=== PATIENT | female | born 1990 | race Hispanic/Latino ===

== ENCOUNTER 2016-08-21 06:14 | Emergency (ER) | payer OTHER ==
[2016-08-21 06:36] VITALS: BP 122/82; RESP 18; TEMP 97.7; O2SAT 100
--- NOTE | 2016-08-21 06:53 | ED PDOC ---
HPI: Female Pain Chief Complaint (Nursing): Female Genitourinary History Per: Patient History/Exam Limitations: no limitations Onset/Duration Of Symptoms: Days Current Symptoms Are (Timing): Still Present Quality Of Discomfort: Dull, Burning Additional History Per: Patient Additional Complaint(s): pt. w/ hx of uti p/w burning upon urination, discomfort, suprapubic pain. no fevers. occaionsal back pain. no n/v/d. no cp/sob/palpitations. Past Medical History Reviewed: Historical Data, Nursing Documentation, Vital Signs Vital Signs: Last Vital Signs Temp 97.7 F 08/21/16 06:31 Pulse 122 H 08/21/16 06:31 Resp 18 08/21/16 06:31 BP 122/82 08/21/16 06:31 Pulse Ox 100 08/21/16 06:31 - Medical History PMH: Anxiety, Bipolar Disorder Denies: Diabetes, Hepatitis, HIV, HTN, Seizures, Sexually Transmitted Disease - Family History Family History: States: Unknown Family Hx - Home Medications Home Medications: Ambulatory Orders Medication Instructions Recorded Cephalexin [cephalexin] 500 mg PO BID 7 Days 08/21/16 Dextroamphetamine/Amphetamine 20 mg PO BID 08/21/16 [Adderall 20 mg Tablet] LORazepam [Ativan] 2 mg PO PRN PRN 08/21/16 - Allergies Allergies/Adverse Reactions: Allergies Allergy/AdvReac Type Severity Reaction Status Date / Time Sulfa (Sulfonamide Allergy ANAPHYLAXIS Verified 08/21/16 06:34 Antibiotics) Review of Systems ROS Statement: Except As Marked, All Systems Reviewed And Found Negative Genitourinary Female: Positive for: Dysuria, Frequency, Hematuria Physical Exam - Reviewed Nursing Documentation Reviewed: Yes Vital Signs Reviewed: Yes - Physical Exam Appears: Positive for: Well, Non-toxic, No Acute Distress Head Exam: Positive for: ATRAUMATIC, NORMAL INSPECTION, NORMOCEPHALIC Skin: Positive for: Normal Color, Warm, DRY Eye Exam: Positive for: EOMI, Normal appearance, PERRL ENT: Positive for: Normal ENT Inspection Neck: Positive for: Normal, Painless ROM Cardiovascular/Chest: Positive for: Regular Rate, Rhythm Respiratory: Positive for: CNT, Normal Breath Sounds Gastrointestinal/Abdominal: Positive for: Normal Exam, Bowel Sounds, Soft Back: Positive for: Normal Inspection Extremity: Positive for: Normal ROM Neurologic/Psych: Positive for: Alert, Oriented - ECG O2 Sat by Pulse Oximetry: 100 Pulse Ox Interpretation: Normal Medical Decision Making Medical Decision Making: pt. w/ uti- HR decreased to below 100. will d/c home w/ keflex. Disposition - Clinical Impression Clinical Impression: Urinary tract infection - Patient ED Disposition Is Patient to be Admitted: No - Disposition Referrals: In House [facility] [Outside] Disposition: Routine/Home Disposition Time: 06:53 Condition: STABLE Prescriptions: Cephalexin [cephalexin] 500 mg PO BID 7 Days Instructions: Urinary Tract Infection in Women (ED)
[2016-08-21 06:59] VITALS: PULSE 95
== END 2016-08-21 07:01 | disposition home or self-care (01) ==
LOC: H.ER 06:14
DX: N39.0 Urinary tract infection, site not specified (principal)

== ENCOUNTER 2016-08-27 02:59 | Emergency (ER) | payer OTHER ==
[2016-08-27 03:23] VITALS: BP 116/66; PULSE 86; RESP 16; TEMP 98.8; O2SAT 99
[2016-08-27] MEDS ORDERED: Sodium Chloride 0.9% 1,000 ML IV STA (03:42)
--- NOTE | 2016-08-27 03:45 | ED PDOC ---
HPI: Female Pain Time Seen by Provider: 08/27/16 03:03 Chief Complaint (Nursing): GI Problem Chief Complaint (Provider): dysuria History Per: Patient History/Exam Limitations: no limitations Onset/Duration Of Symptoms: Days (5) Current Symptoms Are (Timing): Still Present Quality Of Discomfort: Burning, "Pain" Additional History Per: Patient Additional Complaint(s): 25 y/o female presents with dysuria x 5 days. Patient on keflex for UTI diagnosed 08/21, but notes little improvement of symptoms. She now notes associated back pain since yesterday with hematuria. Denies fever, nausea/ vomiting, abdominal pain, changes in bowel movements, vaginal bleeding/ discharge. Patient states she has had kidney infection in past and feels these symptoms to be the start of one. Past Medical History Reviewed: Historical Data, Nursing Documentation, Vital Signs Vital Signs: Last Vital Signs Temp 98.8 F 08/27/16 03:19 Pulse 86 08/27/16 03:19 Resp 16 08/27/16 03:19 BP 116/66 08/27/16 03:19 Pulse Ox 99 08/27/16 03:19 - Medical History PMH: Anxiety, Bipolar Disorder Denies: Diabetes, Hepatitis, HIV, HTN, Seizures, Sexually Transmitted Disease - Surgical History Surgical History: Tonsillectomy - Family History Family History: States: Unknown Family Hx - Home Medications Home Medications: Ambulatory Orders Medication Instructions Recorded Cephalexin [cephalexin] 500 mg PO BID 7 Days 08/21/16 Dextroamphetamine/Amphetamine 20 mg PO BID 08/21/16 [Adderall 20 mg Tablet] LORazepam [Ativan] 2 mg PO PRN PRN 08/21/16 Levofloxacin [Levaquin] 750 mg PO DAILY #4 tablet 08/27/16 - Allergies Allergies/Adverse Reactions: Allergies Allergy/AdvReac Type Severity Reaction Status Date / Time Sulfa (Sulfonamide Allergy ANAPHYLAXIS Verified 08/21/16 06:34 Antibiotics) Review of Systems ROS Statement: Except As Marked, All Systems Reviewed And Found Negative Gastrointestinal: Positive for: Abdominal Pain Musculoskeletal: Positive for: Back Pain Physical Exam - Reviewed Nursing Documentation Reviewed: Yes Vital Signs Reviewed: Yes - Physical Exam Appears: Positive for: Well, Non-toxic, No Acute Distress Head Exam: Positive for: ATRAUMATIC, NORMAL INSPECTION, NORMOCEPHALIC Skin: Positive for: Normal Color Eye Exam: Positive for: Normal appearance ENT: Positive for: Normal ENT Inspection Cardiovascular/Chest: Positive for: Regular Rate, Rhythm Respiratory: Positive for: Normal Breath Sounds Gastrointestinal/Abdominal: Positive for: Tenderness (b/l flank) Back: Positive for: L CVA Tenderness, R CVA Tenderness Extremity: Positive for: Normal ROM Neurologic/Psych: Positive for: Alert, Oriented - Laboratory Results Result Diagrams: 08/27/16 04:10 08/27/16 04:03 Urine POC: Negative Urine dip results: Positive for: Leukocyte Esterase, Blood. Negative for: Nitrate, Ketones - ECG O2 Sat by Pulse Oximetry: 99 - Progress ED Course And Treament: labs, urine, IV fluids, IV toradol Patient educated on findings, discharged with rx Levaquin (dose given in ED) Advised follow up PMD 2-3 days. Return to ED for worsening/concerning symptoms. Disposition - Clinical Impression Clinical Impression: Pyelonephritis - Patient ED Disposition Is Patient to be Admitted: No Counseled Patient/Family Regarding: Studies Performed, Diagnosis, Need For Followup, Rx Given - Disposition Disposition: Routine/Home Disposition Time: 05:38 Condition: IMPROVED Additional Instructions: Follow up with primary doctor in 2-3 days. Take medication as directed. Drink plenty of fluids. Return to ED for worsening/concerning symptoms. Prescriptions: Levofloxacin [Levaquin] 750 mg PO DAILY #4 tablet Instructions: Acute Pyelonephritis (ED)
[2016-08-27 04:41] LABS: RBC URINE 426 /hpf (0-3); URINE BACTERIA MOD (<OCC); URINE BILIRUBIN NEGATIVE (NEGATIVE); URINE BLOOD LARGE (NEGATIVE); URINE COLOR AMBER (YELLOW); URINE GLUCOSE (UA) NEG (Normal); URINE KETONE NEGATIVE (NEGATIVE); URINE LEUKOCYTE ESTERASE MOD Leu/uL (Negative); URINE PROTEIN 100 mg/dL (NEGATIVE); URINE UROBILINOGEN 0.2-1.0 mg/dL (0.2-1.0); WBC URINE 23 /hpf (0-5)
[2016-08-27 04:42] LABS: BASO # 0.1 K/uL (0.0-0.2); BASO % 1.2 % (0.0-2.0); EOS # 0.1 K/uL (0.0-0.7); EOS % 1.8 % (0.0-4.0); HEMATOCRIT 39.5 % (34.0-47.0); LYMPH # 2.6 K/uL (1.0-4.3); LYMPH % 33.6 % (20.0-40.0); MEAN CELL VOLUME 88.5 fl (81.0-99.0); MEAN CORPUSCULAR HEMOGLOBIN 30.2 pg (27.0-31.0); MEAN CORPUSCULAR HGB CONC 34.1 g/dL (33.0-37.0); MEAN PLATELET VOLUME 8.2 fl (7.2-11.7); MONO # 0.9 K/uL (0.0-0.8); MONO % 11.7 % (0.0-10.0); NEUT % 51.7 % (50.0-75.0); RED CELL DISTRIBUTION WIDTH 13.1 % (11.5-14.5); WHITE BLOOD COUNT 7.8 K/uL (4.8-10.8)
[2016-08-27 04:55] LABS: ALB/GLOB RATIO 1.1 (1.0-2.1); ALKALINE PHOSPHATASE 62 U/L (38-126); ALT/SGPT 26 U/L (9-52); AST/SGOT 28 U/L (14-36); BILIRUBIN,TOTAL 0.5 mg/dl (0.2-1.3); BLOOD UREA NITROGEN 15 mg/dl (7-17); CALCIUM 9.3 mg/dL (8.4-10.2); CARBON DIOXIDE 24 mmol/L (22-30); CHLORIDE 107 mmol/L (98-107); GFR AFRICAN-AMERICAN > 60; GLUCOSE,RANDOM 91 mg/dL (65-105); POTASSIUM 4.1 MMOL/L (3.6-5.0); SODIUM 143 mmol/l (132-148); TOTAL PROTEIN 7.3 G/DL (6.3-8.2)
[2016-08-27] MEDS ORDERED: levoFLOXacin 750 mg in D5W 750 MG/150 ML BAG IVPB ONE (05:20)
[2016-08-27] MEDS ORDERED: levoFLOXacin 750 mg in D5W 750 MG/150 ML BAG IVPB STA (05:24)
== END 2016-08-27 07:08 | disposition home or self-care (01) ==
LOC: H.ER 02:59
DX: N10 Acute pyelonephritis (principal)

== ENCOUNTER 2016-09-02 22:41 | Emergency (ER) | payer OTHER ==
[2016-09-02 22:52] VITALS: RESP 16
[2016-09-02] MEDS ORDERED: Sodium Chloride 0.9% 1,000 ML IV STA (23:33)
--- NOTE | 2016-09-02 23:45 | ED PDOC ---
HPI: Female Pain Time Seen by Provider: 09/02/16 23:12 Chief Complaint (Nursing): Female Genitourinary Chief Complaint (Provider): dysuria History Per: Patient History/Exam Limitations: no limitations Onset/Duration Of Symptoms: Days (1) Current Symptoms Are (Timing): Still Present Quality Of Discomfort: Burning, "Pain" Associated Symptoms: Chills, Back Pain, Urinary Symptoms. denies: Nausea, Vomiting Additional History Per: Patient Additional Complaint(s): 25 y/o female presents to ED for dysuria x 1 day. Associated increased urine frequency, urgency, mild back pain. Patient seen in ED twice last week for same , finished Levaquin yesterday and had no symptoms during course of treatment. Denies fever, nausea/vomiting, chest pain, shortness of breath, palpitations, abdominal pain, changes in bowel movements, vaginal bleeding/discharge. Patient sexually active, one partner, does not use protection; states low suspicion for STD. Past Medical History Reviewed: Historical Data, Nursing Documentation, Vital Signs Vital Signs: Last Vital Signs Temp 98.1 F 09/02/16 22:50 Pulse 89 09/02/16 22:50 Resp 16 09/02/16 22:50 BP 129/87 09/02/16 22:50 Pulse Ox 99 09/02/16 22:50 - Medical History PMH: Anxiety, Bipolar Disorder Denies: Diabetes, Hepatitis, HIV, HTN, Seizures, Sexually Transmitted Disease - Surgical History Surgical History: Tonsillectomy - Family History Family History: States: Unknown Family Hx - Home Medications Home Medications: Ambulatory Orders Medication Instructions Recorded Cephalexin [cephalexin] 500 mg PO BID 7 Days 08/21/16 Dextroamphetamine/Amphetamine 20 mg PO BID 08/21/16 [Adderall 20 mg Tablet] LORazepam [Ativan] 2 mg PO PRN PRN 08/21/16 Levofloxacin [Levaquin] 750 mg PO DAILY #4 tablet 08/27/16 Ibuprofen [Motrin Tab] 1 tab PO Q6 PRN #15 tab 09/03/16 Nitrofurantoin Macrocrystals 100 mg PO BID #13 cap 09/03/16 [Macrobid] Phenazopyridine HCl [Pyridium] 200 mg PO TID PRN #5 tablet 09/03/16 - Allergies Allergies/Adverse Reactions: Allergies Allergy/AdvReac Type Severity Reaction Status Date / Time Sulfa (Sulfonamide Allergy ANAPHYLAXIS Verified 08/21/16 06:34 Antibiotics) Review of Systems ROS Statement: Except As Marked, All Systems Reviewed And Found Negative Genitourinary Female: Positive for: Dysuria, Frequency, Pelvic Pain Musculoskeletal: Positive for: Back Pain Physical Exam - Reviewed Nursing Documentation Reviewed: Yes Vital Signs Reviewed: Yes - Physical Exam Appears: Positive for: Well, Non-toxic, No Acute Distress Head Exam: Positive for: ATRAUMATIC, NORMAL INSPECTION, NORMOCEPHALIC Skin: Positive for: Normal Color Eye Exam: Positive for: Normal appearance ENT: Positive for: Normal ENT Inspection Cardiovascular/Chest: Positive for: Regular Rate, Rhythm Respiratory: Positive for: Normal Breath Sounds Gastrointestinal/Abdominal: Positive for: Bowel Sounds, Soft, Tenderness ( suprapubic) Pelvic Exam: Positive for: External Exam Normal, Speculum Exam Normal, No Cerv. Motion Tender, Other (exam chaperoned by Radha Becerra RN). Negative for: Active Bleeding, Blood, Cervicitis, Discharge Back: Positive for: Normal Inspection Extremity: Positive for: Normal ROM Neurologic/Psych: Positive for: Alert, Oriented - Laboratory Results Result Diagrams: 09/02/16 23:46 09/02/16 23:46 Urine POC: Negative Urine dip results: Positive for: Leukocyte Esterase, Blood - ECG O2 Sat by Pulse Oximetry: 99 - Progress ED Course And Treament: labs, urine, CT abd/pelvis, genital cultures EXAM: CT Abdomen and Pelvis With Intravenous Contrast CLINICAL HISTORY: 25 years old, female; Pain; Other: Back; Additional info: Back pain, dysuria TECHNIQUE: Axial computed tomography images of the abdomen and pelvis with intravenous contrast. This CT exam was performed using one or more of the following dose reduction techniques : automated exposure control, adjustment of the mA and/or kV according to patient size, and/ or use of iterative reconstruction technique. Coronal and sagittal reformatted images were created and reviewed. CONTRAST: 90 mL of [id number] administered intravenously. EXAM DATE/TIME: 09/02/2016 11:33 PM COMPARISON: PELVIS/TRANSVAG US 07/11/2015 11:10:00 PM FINDINGS: Lower thorax: Heart size is normal. Lung bases are clear ABDOMEN: Liver: unremarkable Gallbladder and bile ducts: Gallbladder is collapsed. Common bile duct is unremarkable. Pancreas: unremarkable Spleen: Spleen is unremarkable. There is an accessory spleen in the left upper quadrant. Adrenals: unremarkable Kidneys and ureters: Kidneys and ureters are unremarkable. Stomach and bowel: Stomach is distended with ingested material and air. Rotation is normal. The small bowel is mildly distended with enteric contents and air. There is no obstruction. Terminal ileum is unremarkable. Appendix is unremarkable. There is a moderately large amount of stool throughout the colon. Appendix: See stomach and bowel PELVIS: Bladder: Bladder is partially distended. There is mild bladder wall thickening and enhancement. Reproductive: Uterus and right adnexal structures are unremarkable. There is a 2.8 cm left adnexal cyst. ABDOMEN and PELVIS: Intraperitoneal space: There is a small amount of free fluid in the pelvis. There is no free air. Bones/joints: There are no acute osseous abnormalities Soft tissues: unremarkable Vasculature: Vascular structures are unremarkable. Lymph nodes: There is no pathologic adenopathy. IMPRESSION: Mild bladder wall thickening and enhancement, infection versus inflammation; no renal or ureteral stones or hydronephrosis, no CT findings of pyelonephritis; 2.8 cm left adnexal cyst; fatty liver; probable constipation Additional findings as described above. Patient educated on findings, discharged with rx Macrobid (dose given in ED), Pyridium (dose given in ED), ibuprofen Patient advised to follow up with urology. Return to ED for worsening/concerning symptoms. Disposition - Clinical Impression Clinical Impression: Urinary tract infection - Patient ED Disposition Is Patient to be Admitted: No Counseled Patient/Family Regarding: Studies Performed, Diagnosis, Need For Followup, Rx Given - Disposition Referrals: Theo Syed Jr., MD [Staff Provider] - Disposition: Routine/Home Disposition Time: 01:35 Condition: IMPROVED Additional Instructions: Follow up with Urologist. Take medications as directed. Drink plenty of fluids. Return to ED for worsening/concerning symptoms. Prescriptions: Ibuprofen [Motrin Tab] 1 tab PO Q6 PRN #15 tab PRN Reason: Pain, Moderate (4-7) Nitrofurantoin Macrocrystals [Macrobid] 100 mg PO BID #13 cap Phenazopyridine HCl [Pyridium] 200 mg PO TID PRN #5 tablet PRN Reason: Urinary Discomt
[2016-09-02 23:49] LABS: BASO # 0.1 K/uL (0.0-0.2); BASO % 1.4 % (0.0-2.0); EOS # 0.1 K/uL (0.0-0.7); EOS % 0.7 % (0.0-4.0); HEMATOCRIT 40.6 % (34.0-47.0); LYMPH # 2.4 K/uL (1.0-4.3); LYMPH % 24.1 % (20.0-40.0); MEAN CORPUSCULAR HEMOGLOBIN 29.8 pg (27.0-31.0); MEAN CORPUSCULAR HGB CONC 33.5 g/dL (33.0-37.0); MEAN PLATELET VOLUME 8.4 fl (7.2-11.7); MONO # 1.1 K/uL (0.0-0.8); MONO % 10.9 % (0.0-10.0); NEUT # 6.1 K/uL (1.8-7.0); NEUT % 62.9 % (50.0-75.0); RED CELL DISTRIBUTION WIDTH 12.8 % (11.5-14.5); WHITE BLOOD COUNT 9.8 K/uL (4.8-10.8)
[2016-09-02 23:59] LABS: ALB/GLOB RATIO 1.2 (1.0-2.1); ALKALINE PHOSPHATASE 56 U/L (38-126); ALT/SGPT 31 U/L (9-52); AST/SGOT 24 U/L (14-36); BILIRUBIN,TOTAL 0.6 mg/dl (0.2-1.3); BLOOD UREA NITROGEN 19 mg/dl (7-17); CALCIUM 9.1 mg/dL (8.4-10.2); CARBON DIOXIDE 24 mmol/L (22-30); CHLORIDE 105 mmol/L (98-107); GFR AFRICAN-AMERICAN > 60; GLUCOSE,RANDOM 87 mg/dL (65-105); POTASSIUM 4.4 MMOL/L (3.6-5.0); SODIUM 138 mmol/l (132-148); TOTAL PROTEIN 7.6 G/DL (6.3-8.2)
[2016-09-03 00:13] LABS: RBC URINE 287 /hpf (0-3); URINE BILIRUBIN NEGATIVE (NEGATIVE); URINE BLOOD MODERATE (NEGATIVE); URINE COLOR YELLOW (YELLOW); URINE GLUCOSE (UA) NEG (Normal); URINE KETONE NEGATIVE (NEGATIVE); URINE LEUKOCYTE ESTERASE LARGE Leu/uL (Negative); URINE PROTEIN 100 mg/dL (NEGATIVE); URINE UROBILINOGEN 0.2-1.0 mg/dL (0.2-1.0); WBC CLUMPS FEW /hpf; WBC URINE 144 /hpf (0-5)
[2016-09-03] MEDS ORDERED: Iohexol 300 100 ML IJ ONE (00:19)
[2016-09-03] MEDS ORDERED: Sodium Chloride 0.9% 50 ML IV ONE (00:20)
--- NOTE | 2016-09-03 01:01 | CT ---
EXAM: CT Abdomen and Pelvis With Intravenous Contrast CLINICAL HISTORY: 25 years old, female; Pain; Other: Back; Additional info: Back pain, dysuria TECHNIQUE: Axial computed tomography images of the abdomen and pelvis with intravenous contrast. This CT exam was performed using one or more of the following dose reduction techniques: automated exposure control, adjustment of the mA and/or kV according to patient size, and/or use of iterative reconstruction technique. Coronal and sagittal reformatted images were created and reviewed. CONTRAST: 90 mL of [id number] administered intravenously. EXAM DATE/TIME: 09/02/2016 11:33 PM COMPARISON: PELVIS/TRANSVAG US 07/11/2015 11:10:00 PM FINDINGS: Lower thorax: Heart size is normal. Lung bases are clear ABDOMEN: Liver: unremarkable Gallbladder and bile ducts: Gallbladder is collapsed. Common bile duct is unremarkable. Pancreas: unremarkable Spleen: Spleen is unremarkable. There is an accessory spleen in the left upper quadrant. Adrenals: unremarkable Kidneys and ureters: Kidneys and ureters are unremarkable. Stomach and bowel: Stomach is distended with ingested material and air. Rotation is normal. The small bowel is mildly distended with enteric contents and air. There is no obstruction. Terminal ileum is unremarkable. Appendix is unremarkable. There is a moderately large amount of stool throughout the colon. Appendix: See stomach and bowel PELVIS: Bladder: Bladder is partially distended. There is mild bladder wall thickening and enhancement. Reproductive: Uterus and right adnexal structures are unremarkable. There is a 2.8 cm left adnexal cyst. ABDOMEN and PELVIS: Intraperitoneal space: There is a small amount of free fluid in the pelvis. There is no free air. Bones/joints: There are no acute osseous abnormalities Soft tissues: unremarkable Vasculature: Vascular structures are unremarkable. Lymph nodes: There is no pathologic adenopathy. IMPRESSION: Mild bladder wall thickening and enhancement, infection versus inflammation; no renal or ureteral stones or hydronephrosis, no CT findings of pyelonephritis; 2.8 cm left adnexal cyst; fatty liver; probable constipation Additional findings as described above.
[2016-09-03 01:49] VITALS: BP 125/80; PULSE 75; TEMP 97.9; O2SAT 100
== END 2016-09-03 01:49 | disposition home or self-care (01) ==
LOC: H.ER 22:41
DX: N39.0 Urinary tract infection, site not specified (principal); M54.9 Dorsalgia, unspecified; R30.0 Dysuria; F31.9 Bipolar disorder, unspecified; F41.9 Anxiety disorder, unspecified; K59.00 Constipation, unspecified